=== PATIENT | female | born 1985 | race Caucasian/White ===

== ENCOUNTER 2021-04-11 18:58 | Emergency (ER) | payer OTHER ==
--- NOTE | 2021-04-11 19:31 | EDM.PDOC ---
ED HPI GENERAL MEDICAL PROBLEM - General Chief Complaint: Flank Pain Stated Complaint: 31 WKS /FLANK PAIN Time Seen by Provider: 04/11/21 19:07 Source of Information: Reports: Patient History Limitations: Reports: No Limitations - History of Present Illness INITIAL COMMENTS - FREE TEXT/NARRATIVE: Patient is a 35-year-old female is complaining of having flank pain has been ongoing for the last several days. Patient does have a known history of having multiple kidney stones in the past. Patient is 31 weeks . She called her PCP and [place] for this this week but has not been seen by anyone and not started on any medicines. Patient does have Zofran at home which she has not been taking. She is at times nauseous but has not been vomiting. She denie s any dysuria or hematuria. She denies any fever or chills. Her pain right now is severe in intensity. Patient will be away from [place] for the next several days. She has had numerous lithotripsies in the past and has had stents placed twice. She has had frequent kidney stones since she has been 22 years old. 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 has 2 yr old child Endocrine/Metabolic History: Reports: Hypothyroidism Other Endocrine/Metabolic History: graves disease - Infectious Disease History Infectious Disease History: Reports: Novel Coronavirus Social & Family History - Tobacco Use Tobacco Use Status *Q: Never Tobacco User - Caffeine Use Caffeine Use: Reports: None - Recreational Drug Use Recreational Drug Use: No ED ROS GENERAL - Review of Systems Review Of Systems: Comprehensive ROS is negative, except as noted in HPI. ED EXAM, RENAL/ - Physical Exam Exam: See Below Exam Limited By: No Limitations General Appearance: Alert, Moderate Distress Head: Normocephalic Neck: Normal Inspection, Supple Respiratory/Chest: No Respiratory Distress, Lungs Clear, Normal Breath Sounds Cardiovascular: Regular Rate, Rhythm, No JVD GI/Abdominal: Normal Bowel Sounds, Soft, Non-Tender, Mass (Consistent with 31- week .) Back Exam: CVA Tenderness (L) Extremities: Normal Inspection Neurological: Alert, Oriented Psychiatric: Normal Affect Skin Exam: Warm, Dry Lymphatic: No Adenopathy Course - Vital Signs Text/Narrative:: Patient's ultrasound shows mild hydronephrosis on the left. Patient was discussed with Dr. Walsh who is a urologist at [facility] in [place] who felt that patient could be managed conservatively and she did not have to have the stone emergently removed he wanted her sent home with some pain and nausea medicine and to follow-up with the urologist if she is having fever or chills, increased pain, vomiting or feeling worse. I will give the patient a prescription for [place] and Zofran and recommend she follow-up with her urologist this week and return to ER if she is having the above symptoms. Last Recorded V/S: Last Vital Signs Temp 97.6 F 04/11/21 19:26 Pulse 102 H 04/11/21 19:26 Resp BP 138/3 L 04/11/21 19:26 Pulse Ox 98 04/11/21 19:26 - Orders/Labs/Meds Orders: Active Orders 24 hr Category Date Time Status Abdomen 1V Flat [CR] Stat Exams 04/11/21 21:16 Ordered Abdomen Ltd [US] Stat Exams 04/11/21 21:16 Taken Sodium Chloride 0.9% [Normal Saline] 1,000 ml Med 04/11/21 21:00 Active IV ASDIRECTED Medication Orders Sodium Chloride (Normal Saline) 1,000 mls @ 999 mls/hr IV ASDIRECTED KARENA Last Admin: 04/11/21 21:04 Dose: 999 mls/hr Documented by: NISHANT Labs: Laboratory Tests 04/11/21 04/11/21 04/11/21 Range/Units 19:25 19:50 19:50 WBC 14.12 H (3.98-10.04) K/mm3 RBC 3.37 L (3.98-5.22) M/mm3 Hgb 10.5 L (11.2-15.7) gm/dl Hct 32.3 L (34.1-44.9) % MCV 95.8 H (79.4-94.8) fl MCH 31.2 (25.6-32.2) pg MCHC 32.5 (32.2-35.5) g/dl RDW Std Deviation 49.2 H (36.4-46.3) fL Plt Count 431 H (182-369) K/mm3 MPV 8.9 L (9.4-12.3) fl Neutrophils % (Manual) 78 H (40-60) % Band Neutrophils % 0 (0-10) % Lymphocytes % (Manual) 11 L (20-40) % Atypical Lymphs % 0 % Monocytes % (Manual) 7 (2-10) % Eosinophils % (Manual) 4 (0.7-5.8) % Basophils % (Manual) 0 L (0.1-1.2) Platelet Estimate Increased Plt Morphology Comment See note RBC Morph Comment Normal Sodium 142 (136-145) mEq/L Potassium 3.6 (3.5-5.1) mEq/L Chloride 107 (98-107) mEq/L Carbon Dioxide 25 (21-32) mEq/L Anion Gap 13.6 (5-15) BUN 12 (7-18) mg/dL Creatinine 1.3 H (0.55-1.02) mg/dL Est Cr Clr Drug Dosing 65.94 mL/min Estimated GFR (MDRD) 47 (>60) mL/min BUN/Creatinine Ratio 9.2 L (14-18) Glucose 120 H (70-99) mg/dL Calcium 10.7 H (8.5-10.1) mg/dL Total Bilirubin 0.2 (0.2-1.0) mg/dL AST 14 L (15-37) U/L ALT 16 (14-59) U/L Alkaline Phosphatase 170 H (46-116) U/L Total Protein 6.0 L (6.4-8.2) g/dl Albumin 2.0 L (3.4-5.0) g/dl Globulin 4.0 gm/dL Albumin/Globulin Ratio 0.5 L (1-2) Urine Color Light yellow (Yellow) Urine Appearance Clear (Clear) Urine pH 7.0 (5.0-8.0) Ur Specific [place] 1.015 (1.005-1.030) Urine Protein Negative (Negative) Urine Glucose (UA) Negative (Negative) Urine Ketones Negative (Negative) Urine Occult Blood 1+ H (Negative) Urine Nitrite Negative (Negative) Urine Bilirubin Negative (Negative) Urine Urobilinogen 0.2 (0.2-1.0) Ur Leukocyte Esterase 1+ H (Negative) Urine RBC 0-5 (0-5) /hpf Urine WBC 5-10 H (0-5) /hpf Ur Squamous Epith Cells 0-5 (0-5) /hpf Urine Bacteria Few (FEW) /hpf Urine Mucus Not seen (FEW) /hpf Meds: Medications Generic Name Dose Route Start Last Admin Trade Name Freq PRN Reason Stop Dose Admin Sodium Chloride 1,000 mls @ 999 mls/hr 04/11/21 21:00 04/11/21 21:04 Normal Saline IV 999 mls/hr ASDIRECTED KARENA Administration Discontinued Medications Generic Name Dose Route Start Last Admin Trade Name Freq PRN Reason Stop Dose Admin Acetaminophen 650 mg 04/11/21 19:47 04/11/21 20:00 Acetaminophen 325 Mg Tab PO 04/11/21 19:48 650 mg NOW ONE Administration Hydromorphone HCl 0.5 mg 04/11/21 19:47 04/11/21 20:01 Hydromorphone 0.5 Mg/0.5 Ml Syringe IVPUSH 04/11/21 19:48 0.5 mg ONETIME ONE Administration Sodium Chloride 1,000 mls @ 1,000 mls/hr 04/11/21 19:47 04/11/21 19:59 Normal Saline IV 04/11/21 20:46 1,000 mls/hr ONETIME ONE Administration Ceftriaxone Sodium 1 gm/ 100 mls @ 200 mls/hr 04/11/21 21:17 04/11/21 21:45 Sodium Chloride IV 04/11/21 21:46 200 mls/hr ONETIME ONE Administration Ondansetron HCl 4 mg 04/11/21 19:47 04/11/21 19:59 Ondansetron 4 Mg/2 Ml Sdv IVPUSH 04/11/21 19:48 4 mg ONETIME ONE Administration Departure - Departure Time of Disposition: 23:13 Disposition: Home, Self-Care 01 Condition: Good Clinical Impression: Kidney stone on left side - Discharge Information Instructions: Kidney Stones, [id number] Referrals: PCP,Not In Area [Primary Care Provider] - Forms: ED Department Discharge Additional Instructions: Pain and nausea medicines as needed. Keflex as prescribed. Return to the ER if having fever or chills, increased pain, vomiting or feeling worse. Follow-up with your urologist this week if possible. Tylenol if needed. Sepsis Event Note (ED) - Evaluation Sepsis Screening Result: No Definite Risk - Focused Exam Vital Signs: Vital Signs Temp Pulse BP Pulse Ox 04/11/21 19:26 97.6 F 102 H 138/3 L 98 - My Orders Last 24 Hours: My Active Orders 04/11/21 21:00 Sodium Chloride 0.9% [Normal Saline] 1,000 ml IV ASDIRECTED 04/11/21 21:16 Abdomen 1V Flat [CR] Stat Abdomen Ltd [US] Stat - Assessment/Plan Last 24 Hours: My Active Orders 04/11/21 21:00 Sodium Chloride 0.9% [Normal Saline] 1,000 ml IV ASDIRECTED 04/11/21 21:16 Abdomen 1V Flat [CR] Stat Abdomen Ltd [US] Stat
[2021-04-11] MEDS ORDERED: Acetaminophen 325 MG Tab PO ONE (19:47)
[2021-04-11] MEDS ORDERED: Ondansetron 4 MG/2 ML SDV IVPUSH ONE (19:47)
[2021-04-11] MEDS ORDERED: HYDROmorphone 0.5 MG/0.5 ML Syringe IVPUSH ONE (19:47)
[2021-04-11] MEDS ORDERED: Sodium Chloride 0.9% 1,000 ML IV ONE (19:47)
[2021-04-11] MEDS ORDERED: Sodium Chloride 0.9% 1,000 ML IV SCH (21:00)
[2021-04-11] MEDS ORDERED: cefTRIAXone 1 GM in Sodium Chloride 0.9% 100 ML IV ONE (21:17)
--- NOTE | 2021-04-12 09:43 | US ---
Renal ultrasound: Multiple real-time images of the kidneys were obtained. Comparison: No prior renal imaging is available. Findings: Several cysts within the right kidney are noted with largest measuring 2.0 cm. Several minimal calcifications are seen compatible with nonobstructing stones. Left kidney shows evidence of fairly severe hydronephrosis. Cysts are noted within the left kidney with largest measuring approximately 1.8 cm. There is a renal stone within the left kidney measuring 8 mm. Left ureter could not be identified on this exam. Impression: 1. Prominent hydronephrosis of the left kidney. Ureter could not be visualized. Differential includes prominent hydronephrosis of versus nonvisualized obstructing stone as an etiology. 2. Cysts within both kidneys with several scattered nonobstructing calculi within both kidneys. Diagnostic code #3
== END 2021-04-11 23:37 | disposition home or self-care (01) ==
LOC: JD.ED 18:58
DX: O99.891 Other specified diseases and conditions complicating pregnancy (principal); N13.2 Hydronephrosis with renal and ureteral calculous obstruction; Z86.16 Personal history of COVID-19; Z88.1 Allergy status to other antibiotic agents; Z3A.31 31 weeks gestation of pregnancy
CPT/HCPCS: 36415; 76705; 80053; 81001; 85007; 85027; 96365; 96375; 99284; A9270; J0696; J1170; J2405; J7030